=== PATIENT | male | born 1945 | race Caucasian/White ===

== ENCOUNTER → 2020-04-07 08:10 | Outpatient (BNVA) | payer MEDICARE, OTHER, SELFPAY | PROVIDERS: PCP Family Medicine; Visit Provider Nurse Practitioner Family | DX: R07.9 Chest pain, unspecified (principal); I10 Essential (primary) hypertension | CPT/HCPCS: 80053; 80061; 83735; 85025 ==

== ENCOUNTER 2020-05-09 07:07 | Outpatient (CLI) | payer MEDICARE, OTHER, SELFPAY ==
--- NOTE | 2020-05-09 07:15 | USCV_ITS ---
Viridiana Charlie Age: 74 Gender: M : 1945 Exam Date: 05/09/2020 07:31 Ordering Phys: Cassidy Beal MD ([email or web address]) Technologist: Lore Griggs Exam Location: [facility] [place] Indication: AORTIC INSUFFICIENCY BP: 115 / 67 HR: 51 Rhythm: Sinus Technical Quality: Adequate MEASUREMENTS (Male / Female) Normal Values 2D ECHO LV Diastolic Diameter PLAX 3.2 cm 4.2 - 5.9 / 3.9 - 5.3 cm LV Systolic Diameter PLAX 3.0 cm IVS Diastolic Thickness 4.0 cm 0.6 - 1.0 / 0.6 - 0.9 cm IVS Systolic Thickness 2.0 cm LVPW Diastolic Thickness 1.0 cm 0.6 - 1.0 / 0.6 - 0.9 cm LVPW Systolic Thickness 2.0 cm RV Chamber Size 3.9 cm LVOT Diameter 2.0 cm LV Ejection Fraction 2D Teich 32.7 % LV Ejection Fraction MOD 2C 44.2 % LV Ejection Fraction 2C AL 44.9 % LA Diameter 3.6 cm LA Width 3.3 cm LA Height 5.2 cm RA Width 2.8 cm RA Height 5.3 cm Aorta at Sinotubular Diameter 2.6 cm M-MODE LV Diastolic Diameter MM 4.1 cm 4.2 - 5.9 / 3.9 - 5.3 cm LV Systolic Diameter MM 3.5 cm LV Ejection Fraction MM Teich 31.6 % IVS Diastolic Thickness MM 1.2 cm 0.6 - 1.0 / 0.6 - 0.9 cm IVS Systolic Thickness MM 1.4 cm LVPW Diastolic Thickness MM 2.7 cm 0.6 - 1.0 / 0.6 - 0.9 cm LVPW Systolic Thickness MM 1.5 cm Aortic Annulus Diameter 3.0 cm LA Ao Ratio MM 1.2 DOPPLER AV Peak Velocity 223.0 cm/s LVOT Peak Velocity 83.0 cm/s AV Area Cont Eq vti 1.3 cm squared AV Area Cont Eq pk 1.2 cm squared MV Area PHT 5.0 cm squared Mitral E to A Ratio 1.1 MV E' Velocity 45.5 cm/s Mitral E to MV E' Ratio 7.1 Mitral E to LV E' Lateral Ratio 6.7 Mitral E to LV E' Septal Ratio 7.6 TR Peak Velocity 250.0 cm/s TR Peak Gradient 25.0 mmHg TV Peak E Velocity 78.0 cm/s Right Atrial Pressure 3.0 mmHg Pulmonary Artery Systolic Pressu 28.0 mmHg PV Peak Velocity 64.0 cm/s RV Acceleration Time 0.1 s RV Ejection Time 0.3 s RV AcT/ET 0.3 FINDINGS Left Ventricle Normal left ventricular size, systolic function and wall thickness, with no regional wall motion abnormalities. Left ventricular ejection fraction is estimated at 55-60 %. Normal diastolic function. Right Ventricle Normal right ventricular size and systolic function. RVSP could not be calculated due to incomplete tricuspid regurgitation velocity profile. Right Atrium Normal right atrial size. Right atrial pressure estimated at 3 mmHg. Left Atrium Mildly increased left atrial size. Mitral Valve Structurally normal mitral valve. Aortic Valve Mildly thickened and calcified aortic valve (more pronounced in right coronary cusp). Aortic valve sclerosis without stenosis. Mild to moderate aortic valve regurgitation. Tricuspid Valve Structurally normal tricuspid valve. Trace tricuspid valve regurgitation. Pulmonic Valve Structurally normal pulmonic valve. No pulmonary valve stenosis. Trace pulmonary valve regurgitation. Pericardium No pericardial effusion. Aorta Normal size aortic root and proximal ascending aorta. Normal- sized inferior vena cava with normal respiratory variation. CONCLUSIONS 1. Normal left ventricular size, systolic function and wall thickness, with no regional wall motion abnormalities. Left ventricular ejection fraction is estimated at 55-60 %. Normal diastolic function. 2. Normal right ventricular size and systolic function. 3. Mildly increased left atrial size. 4. Mild to moderate aortic valve regurgitation. 5. When compared to previous echocardiogram dated 07/15/2015, left ventricle systolic function seems to have improved. Cassidy Beal MD (Electronically Signed) Final Date: 12 May 2020 18:31 S
[2020-05-09 07:24] VITALS: BMI 22.5
--- NOTE | 2020-05-09 07:25 | ECG_ITS ---
[facility] Test Date: 2020-05-09 Pat Name: Charlie Kemp Department: Room: Gender: Male Electronic Tester: : 1945 Requested By: Cassidy Beal Order Number: [id number] Disha MD: Cassidy Beal M.D. Interpretive Statements NAME OF STUDY: EXERCISE SESTAMIBI STRESS TEST INDICATION: Dyspnea on exertion Baseline blood pressure of 131/67 mm Hg, heart rate of 55 beats per minute and oxygen saturation of 96%. EKG showed sinus bradycardia, left axis deviation with normal ST-Ts. The patient exercised for 7 minutes 47 seconds on a standard Malachi protocol. Patient attained a maximum heart rate of 130 beats per minute(88% of the maximum predicted heart rate) with a blood pressure at the peak exercise of 179/83 mm Hg and oxygen saturation 93%. The EKG at the peak exercise revealed sinus tachycardia with no significant ST-T wave changes. Patient did not have any chest pain or any significant arrhythmis with the exercise During the recovery phase, there were no new changes. Isolated PACs and PVCs noted in recovery. Blood pressure at the end of the recovery phase was 154/74 mm Hg with a heart rate of 85 beats per minute and oxygen saturation 96%. CONCLUSION: 1. Normal EKG response to treadmill exercise. 2. No exercise-induced chest pain or cardiac arrhythmia 3. Good exercise tolerance, attained a maximum of 10.2 METs. 4. Baseline normal blood pressure with normal response to exercise. 5. Perfusion scan will be documented separately. Electronically Signed On 05-13-2020 17:05:29 CAGE MAKER by Cassidy Beal M.D. [id number]
--- NOTE | 2020-05-09 07:26 | NMCV_ITS ---
NM silas perf SPECT r/s* [id number] Charlie Kemp Age: 74 Gender: M : 1945 Exam Date: 05/09/2020 07:26 Ordering Phys: Cassidy Beal MD ([email or web address]) Technologist: DOUGIE Stewart Exam Location: [facility] Indications: Dyspnea on exertion STRESS TEST Please see separate stress test report in [facility] for full findings IMAGE PROTOCOL Rest/Stress 1 Exercise Day Radiopharmaceutical Dose (mCi) Administration Site Administered by Rest: Tc-99m 10.8 IV DOUGIE Godfrey Sestamibi Stress:Tc-99m 32.7 IV DOUGIE Godfrey Sestamibi Rest: 09-May-2020 60 Discovery 630 Stress: 09-May-2020 30 Discovery 630 Radiopharmaceutical was injected at 85 % maximum heart rate. Images obtained in supine and prone position. SPECT RESULTS Technical Quality: Excellent Raw Data Analysis: Normal Image Corrections: No attenuation or motion correction applied Summed Stress Score: 3 Summed Rest Score: 0 Summed Difference Score: 3 PERFUSION FINDINGS Small size perfusion abnormality of mild severity of basal to mid inferolateral wall supine stress images with improved tracer uptake on prone stress images. This is suggestive of attenuation artifact. FUNCTIONAL RESULTS (calculated via Gated SPECT) Stress Image LV EF (%): 59 Stress EDV (mL):101 TID: 0.91 Stress ESV (mL):41 FUNCTIONAL FINDINGS: The left ventricle is normal in size. Transient Ischemia Dilatation of 0.91. The left ventricular ejection fraction is normal with a value of 59%. There is normal left ventricular wall thickening with no regional wall motion abnormality. Normal end-diastolic and end-systolic volumes. IMPRESSIONS 1. Myocardial perfusion imaging is normal. 2. Overall left ventricular systolic function is normal without regional wall motion abnormalities. 3. The left ventricular ejection fraction is normal with a value of 59%. 4. Scan indicates low risk for cardiac events. 5. No prior similar studies to compare. Cassidy Beal MD (Electronically Signed) Final Date: 16 May 2020 14:59 S
[2020-05-09 10:36] VITALS: BP 154/74; PULSE 85
== END 2020-05-09 07:08 | disposition home or self-care (01) ==
PROVIDERS: PCP Family Medicine; Visit Provider Internal Medicine Cardiovascular Disease
DX: I35.1 Nonrheumatic aortic (valve) insufficiency (principal)
CPT/HCPCS: 78452; 93017; 93306; A9500

== ENCOUNTER → 2021-02-02 10:52 | Outpatient (BNVA) | payer MEDICARE, OTHER, SELFPAY | PROVIDERS: PCP Family Medicine; Visit Provider Nurse Practitioner Family | DX: M25.551 Pain in right hip (principal); E78.5 Hyperlipidemia, unspecified; I10 Essential (primary) hypertension | CPT/HCPCS: 73502; 80053; 80061; 84550 ==

== ENCOUNTER → 2022-04-15 09:10 | Outpatient (BNVA) | payer MEDICARE, OTHER, SELFPAY | PROVIDERS: PCP Family Medicine; Visit Provider Nurse Practitioner Family | DX: M25.511 Pain in right shoulder (principal); E78.5 Hyperlipidemia, unspecified; R52 Pain, unspecified; K21.9 Gastro-esophageal reflux disease without esophagitis; I25.10 Atherosclerotic heart disease of native coronary artery without angina pectoris | CPT/HCPCS: 80053; 80061; 84443; 85025 ==

== ENCOUNTER → 2022-04-15 09:33 | Outpatient (BNVA) | payer MEDICARE, OTHER, SELFPAY | PROVIDERS: PCP Family Medicine; Visit Provider Nurse Practitioner Family | DX: M19.011 Primary osteoarthritis, right shoulder (principal) | CPT/HCPCS: 73030 ==

== ENCOUNTER → 2023-04-12 08:27 | Outpatient (BNVA) | payer MEDICARE, OTHER, SELFPAY | PROVIDERS: PCP Family Medicine; Visit Provider Nurse Practitioner Family | DX: R07.9 Chest pain, unspecified (principal); I44.0 Atrioventricular block, first degree | CPT/HCPCS: 93005 ==

== ENCOUNTER → 2023-04-12 12:20 | Outpatient (BNVA) | payer MEDICARE, OTHER, SELFPAY | PROVIDERS: PCP Family Medicine; Visit Provider Nurse Practitioner Family | DX: R07.9 Chest pain, unspecified (principal); B35.1 Tinea unguium; E78.5 Hyperlipidemia, unspecified; Z12.5 Encounter for screening for malignant neoplasm of prostate; I44.0 Atrioventricular block, first degree | CPT/HCPCS: 80053; 80061; 84443; 85025; 93005; G0103 ==

== ENCOUNTER → 2023-04-25 07:29 | Outpatient (BNVA) | payer MEDICARE, OTHER, SELFPAY | PROVIDERS: PCP Family Medicine; Visit Provider Podiatrist Foot & Ankle Surgery | DX: L60.8 Other nail disorders (principal); L60.3 Nail dystrophy | CPT/HCPCS: 99203 ==

== ENCOUNTER → 2025-01-18 09:26 | Outpatient (BNVA) | payer MEDICARE, OTHER, SELFPAY | PROVIDERS: PCP Family Medicine; Visit Provider Nurse Practitioner Family | DX: M25.571 Pain in right ankle and joints of right foot (principal) | CPT/HCPCS: 73610 ==